=== PATIENT | female | born 1950 | race Caucasian/White ===

== ENCOUNTER 2018-02-05 10:43 | Emergency (ER) | payer MEDICARE ==
[2018-02-05 11:30] LABS: HEMATOCRIT 42.6 % (36.0-48.0); HEMOGLOBIN 14.8 g/dL (12-16); MCH 31.1 pg (26.0-34.0); MCHC 34.7 g/dL (31.0-37.0); MCV 89.5 fL (80.0-100.0); MEAN PLATELET VOLUME 8.4 fL (7.4-10.4); PLATELET COUNT 333 10x3/uL (130-400); RBC 4.76 10x6/uL (4.00-5.40); RDW 13.7 % (11.5-14.5); WBC 33.8 10x3/uL (4.8-10.8)
[2018-02-05 11:37] LABS: ANION GAP 12.8 mmol/L (8-16); BILIRUBIN - TOTAL 0.46 mg/dL (0.2-1.3); CALCIUM 8.9 mg/dL (8.5-10.1); CARBON DIOXIDE 26.8 mmol/L (21.0-32.0); POTASSIUM - SERUM 3.6 mmol/L (3.5-5.1); PROTEIN - SERUM 7.7 g/dL (6.4-8.2)
[2018-02-05 12:09] LABS: EOSINOPHILS 1 % (0-7); LYMPHOCYTES 21 % (15-50); MONOCYTES 7 % (2-11); NEUTROPHILS 69 % (40-80)
[2018-02-05 12:10] LABS: PLATELET ESTIMATE NORMAL
[2018-02-05 12:16] LABS: BILIRUBIN NEGATIVE (NEGATIVE); COLOR YELLOW (YELLOW); GLUCOSE NEGATIVE (NEGATIVE); UROBILINOGEN NORMAL (NORMAL)
[2018-02-05 12:17] LABS: EPITHELIAL CELLS 0-5 /hpf (0-5)
[2018-02-05 12:19] LABS: APPEARANCE SLT CLOUDY (CLEAR); BACTERIA MANY /hpf (NONE SEEN); KETONE SMALL mg/dL (NEGATIVE); NITRITE POSITIVE (NEGATIVE); PROTEIN TRACE mg/dL (NEGATIVE); RED CELLS - URINE 0-5 /hpf (0-5)
[2018-02-05 12:20] LABS: MUCUS <1+ /lpf (NONE SEEN)
== END 2018-02-05 20:45 | disposition short-term general hospital (02) ==
LOC: D.ER 10:43
PROVIDERS: Emergency Medicine
DX: N39.0 Urinary tract infection, site not specified (principal); K52.9 Noninfective gastroenteritis and colitis, unspecified; F03.90 Unspecified dementia, unspecified severity, without behavioral disturbance, psychotic disturbance, mood disturbance, and anxiety